=== PATIENT | female | born 1955 ===

== ENCOUNTER 2017-05-27 08:13 | Emergency (ER) | payer MEDICAID ==
[2017-05-27 08:27] VITALS: RESP 18; TEMP 98.3
[2017-05-27] MEDS ORDERED: Oxycodone/Acetaminophen 5/325 mg Tab PO STA (09:15)
[2017-05-27] MEDS ORDERED: Oxycodone/Acetaminophen 5/325 mg Tab ONE (09:19)
--- NOTE | 2017-05-27 09:49 | ED PDOC ---
HPI: Back Time Seen by Provider: 05/27/17 08:52 Chief Complaint (Nursing): Back Pain Chief Complaint (Provider): Left lower back pain History Per: Patient History/Exam Limitations: no limitations Onset/Duration Of Symptoms: Days (x2) Current Symptoms Are (Timing): Intermittent Episodes Additional Complaint(s): Patient is a 61 y/o female presenting to the emergency department for left lower back pain since yesterday that comes and goes in waves and is worse when bending, moving, and walking. Reports that she was pulling a heavy bag of groceries over her back hours prior to the onset of symptoms. Also took Aleve yesterday with no significant relief of pain. Denies vomiting, nausea, fever, dysuria, weakness, numbness, medical history, or other complaints. PCP: Dr. Elio Velasco Past Medical History Reviewed: Historical Data, Nursing Documentation, Vital Signs Vital Signs: Last Vital Signs Temp 98.3 F 05/27/17 08:24 Pulse 94 H 05/27/17 08:24 Resp 18 05/27/17 08:24 BP 145/100 H 05/27/17 08:24 Pulse Ox 98 05/27/17 08:24 - Medical History PMH: HTN, Hyperlipidemia - Surgical History Other surgeries: Ankle surgery - Family History Family History: States: Unknown Family Hx - Social History Current smoker - smoking cessation education provided: No Ex-Smoker (has not smoked in the last 12 months): No Alcohol: None Drugs: Denies - Home Medications Home Medications: Ambulatory Orders Medication Instructions Recorded Cyclobenzaprine [Cyclobenzaprine 10 mg PO TID #15 tab 05/27/17 HCl] oxyCODONE/Acetaminophen [Percocet 1 ea PO Q6 PRN #6 tab 05/27/17 5/325 mg Tab] - Allergies Allergies/Adverse Reactions: Allergies Allergy/AdvReac Type Severity Reaction Status Date / Time No Known Allergies Allergy Verified 05/27/17 08:23 Review of Systems ROS Statement: Except As Marked, All Systems Reviewed And Found Negative Constitutional: Negative for: Fever Gastrointestinal: Negative for: Nausea, Vomiting Genitourinary Female: Negative for: Dysuria Musculoskeletal: Positive for: Back Pain (left lower) Neurological: Negative for: Weakness, Numbness Physical Exam - Reviewed Nursing Documentation Reviewed: Yes Vital Signs Reviewed: Yes - Physical Exam Appears: Positive for: Well, Non-toxic, No Acute Distress Head Exam: Positive for: ATRAUMATIC, NORMAL INSPECTION, NORMOCEPHALIC Skin: Positive for: Normal Color, Warm, Dry Eye Exam: Positive for: Normal appearance Neck: Positive for: Normal, Painless ROM, Supple Cardiovascular/Chest: Positive for: Regular Rate, Rhythm. Negative for: Murmur Respiratory: Positive for: Normal Breath Sounds. Negative for: Accessory Muscle Use, Respiratory Distress Gastrointestinal/Abdominal: Positive for: Normal Exam, Soft. Negative for: Tenderness Back: Positive for: Other (left lower back tenderness on palpation) Neurologic/Psych: Positive for: Alert, Oriented (x3) - ECG O2 Sat by Pulse Oximetry: 98 (RA) Pulse Ox Interpretation: Normal Medical Decision Making Medical Decision Making: Time: 09:15 Initial impression: Muscle spasms, musculoskeletal pain Initial plan: Flexeril 10 mg PO Toradol 30 mg IM Percocet 1 tab PO Reevaluation 11:10 Upon provider reevaluation patient is feeling better with improvement of pain reported and requires no further treatment in the ED at this time. Patient will be discharged with Rx for Cyclobenzaprine and Percocet. Counseling was provided and all questions were answered regarding diagnosis. There is agreement to discharge plan. Return if symptoms persist or worsen. Clinical Impression: Back strain Scribe Attestation: Documented by Kathie Mendez, acting as a scribe for Nikko Murillo MD. Provider Scribe Attestation: All medical record entries made by the Scribe were at my direction and personally dictated by me. I have reviewed the chart and agree that the record accurately reflects my personal performance of the history, physical exam, medical decision making, and the department course for this patient. I have also personally directed, reviewed, and agree with the discharge instructions and disposition. Disposition - Clinical Impression Clinical Impression: Back strain - Patient ED Disposition Is Patient to be Admitted: No Doctor Will See Patient In The: Office Counseled Patient/Family Regarding: Studies Performed, Diagnosis, Need For Followup - Disposition Referrals: [facility] [Outside] Disposition: Routine/Home Disposition Time: 11:10 Condition: GOOD Additional Instructions: Take your medications as instructed. Take naproxen as directed. Follow up with your PCP in 2-3 days. Prescriptions: Cyclobenzaprine [Cyclobenzaprine HCl] 10 mg PO TID #15 tab oxyCODONE/Acetaminophen [Percocet 5/325 mg Tab] 1 ea PO Q6 PRN #6 tab PRN Reason: Pain, Severe (8-10) Instructions: Muscle Strain (ED)
[2017-05-27 11:25] VITALS: BP 140/90; PULSE 60; O2SAT 100
== END 2017-05-27 11:25 | disposition home or self-care (01) ==
LOC: H.ER 08:13
DX: S39.012A Strain of muscle, fascia and tendon of lower back, initial encounter (principal); X50.9XXA Other and unspecified overexertion or strenuous movements or postures, initial encounter; Y92.89 Other specified places as the place of occurrence of the external cause; E78.5 Hyperlipidemia, unspecified; I10 Essential (primary) hypertension
CPT/HCPCS: 96372; 99282; J1885